=== PATIENT | male | born 1970 | race Caucasian/White ===

== ENCOUNTER 2018-01-09 18:49 | Observation (INO) ==
--- NOTE | 2018-01-09 20:02 | Emergency Department Note ---
Disposition Clinical Impression: Food impaction of esophagus Disposition: Home, Self-Care Condition: Good Referrals: Jean Chu MD [Partnered Physician] - Forms: ED Satisfaction Letter General Adult HPI - General Chief complaint: ED Skin/Abscess/Foreign Body Stated complaint: SOmething stuck in throat Time Seen by Provider: 01/09/18 19:09 Source: patient - History of Present Illness Pain Scale: 0 - Related Data Previous Rx's Medication Instructions Recorded Azithromycin [Azithromycin 6-Tab 250 mg PO PER PKG DI #6 tab 10/02/16 Pack] Amoxicillin 875 mg PO BID #20 tablet 03/15/17 Ibuprofen [Motrin] 600 mg PO Q8HR PRN #20 tab 03/15/17 Loratadine/Pseudophed (12 HR) 1 each PO BID #14 tab.er.12h 03/15/17 [Claritin D (12HR)] Oxymetazoline [Afrin] 1 spray NS Q12HR PRN 3 Days bottle 03/15/17 Doxycycline 100 mg PO BID #20 capsule 10/01/17 Loratadine [Claritin] 10 mg PO DAILY PRN #30 tablet 11/30/17 predniSONE [PredniSONE] 1 each PO DAILY 12 Days tablet 11/30/17 Allergies Allergy/AdvReac Type Severity Reaction Status Date / Time acetaminophen [From Vicodin] Allergy Hives Verified 01/09/18 18:55 hydrocodone [From Vicodin] Allergy Hives Verified 01/09/18 18:55 Past Medical History - Past Medical History Medical history: Reports: no medical history Surgical history: Reports: non-contributory Psychiatric history: Reports: no psych history - Social History Smoking Status: Never smoker Smokeless Tobacco Status: No Alcohol use: Reports: none Drug use: Reports: none Physical Exam - General General appearance: alert, in no apparent distress Course Vital Signs Temperature 97.9 F 01/09/18 18:53 Pulse Rate 74 01/09/18 18:53 Respiratory Rate 18 01/09/18 18:53 Blood Pressure 135/94 01/09/18 18:53 O2 Sat by Pulse Oximetry 98 01/09/18 18:53 Temperature 97.9 F 01/09/18 19:06 Pulse Rate 87 01/09/18 20:30 Respiratory Rate 16 01/09/18 20:30 Blood Pressure 117/96 01/09/18 20:30 O2 Sat by Pulse Oximetry 99 01/09/18 20:30 Oxygen Delivery Oxygen Delivery Room Air Attestation Statement - Attestation Attestation: I examined this patient and my medical decision-making was reviewed with the Resident Physician. I agree with the documented findings, disposition and treatment plan as described except to the extent set forth below. Patient presents to the ED with a chief complaint of swallowed foreign body. Patient was eating pork this afternoon. He felt something get stuck. He states he has a history of similar episodes. His PCP one of her nitroglycerin in the past for this. He states he has " tissue" in his esophagus. On examination he is in no distress. Lungs clear. He is spitting his secretions into a bottle. Plan. Patient had an IV placed. His been given glucagon. We will consult with endoscopy. Patient to endoscopy at 20
--- NOTE | 2018-01-09 20:02 | Emergency Department Note ---
Disposition Clinical Impression: Food impaction of esophagus Qualifiers: Encounter type: initial encounter Qualified Code(s): T18.128A - Food in esophagus causing other injury, initial encounter Disposition: Home, Self-Care Condition: Good Referrals: Jean Chu MD [Partnered Physician] - Forms: ED Satisfaction Letter Time of Disposition: 21:15 General Adult HPI - General Chief complaint: ED Skin/Abscess/Foreign Body Stated complaint: SOmething stuck in throat Time Seen by Provider: 01/09/18 19:09 Source: patient Nursing Notes Reviewed: Yes Vital Signs Reviewed: Yes - History of Present Illness HPI Narrative: 39-year-old male presents from home for evaluation of the sensation of an esophageal foreign body. At 2 PM the patient was eating pork and felt sensation that was stuck in his esophagus. He attempted to drink a cold water to push down however, this came back up. He is unable to tolerate his secretions at this point; he is spitting into a bottle at bedside. Patient is a history of similar sensation when eating however, he is able to force it down by gulping water. His last EGD was 10 years ago and he is not sure whether finding that he does not believe there was any dilation of his esophagus performed. No current daily medications. ROS: Positive: As above Negative: Chest pain, palpitations, vomiting, abdominal pain, unusual back pain. Pain Scale: 0 - Related Data Previous Rx's Medication Instructions Recorded Azithromycin [Azithromycin 6-Tab 250 mg PO PER PKG DI #6 tab 10/02/16 Pack] Amoxicillin 875 mg PO BID #20 tablet 03/15/17 Ibuprofen [Motrin] 600 mg PO Q8HR PRN #20 tab 03/15/17 Loratadine/Pseudophed (12 HR) 1 each PO BID #14 tab.er.12h 03/15/17 [Claritin D (12HR)] Oxymetazoline [Afrin] 1 spray NS Q12HR PRN 3 Days bottle 03/15/17 Doxycycline 100 mg PO BID #20 capsule 10/01/17 Loratadine [Claritin] 10 mg PO DAILY PRN #30 tablet 11/30/17 predniSONE [PredniSONE] 1 each PO DAILY 12 Days tablet 11/30/17 Allergies Allergy/AdvReac Type Severity Reaction Status Date / Time acetaminophen [From Vicodin] Allergy Hives Verified 01/09/18 18:55 hydrocodone [From Vicodin] Allergy Hives Verified 01/09/18 18:55 All systems ED: reviewed and negative except as stated. Review of Systems: As Per HPI Past Medical History - Past Medical History Medical history: Reports: no medical history Surgical history: Reports: non-contributory Psychiatric history: Reports: no psych history - Social History Smoking Status: Never smoker Smokeless Tobacco Status: No Alcohol use: Reports: none Drug use: Reports: none Physical Exam Vital Signs Reviewed General: Patient is alert, oriented, and in no acute distress. He is spitting into a bottle at bedside. Head: atraumatic, normocephalic Eye: normal appearance, PERRL, EOMI, no scleral icterus, no conjunctival injection ENT: mucous membranes moist, normal external ear exam Neck: normal inspection, trachea midline, full ROM Chest: normal inspection, symmetric chest rise Respiratory: Good respiratory effort. Bilateral breath sounds are clear without wheezing, crackles, or rhonchi. Cardiovascular: Regular rate and rhythm. No clicks, rubs, gallops, or murmors. Normal heart sounds. Abdomen: Bowel sounds present normoactive x-4 quadrants. Abdomen is soft, nondistended, and nontender. No guarding or rebound. No organomegaly noted. Musculoskeletal: Spontaneously moving all extremities. Skin: warm, dry, intact. Neuro: Alert and oriented x4. Sensation light touch intact. Psych: Patient's affect is appropriate for situation. - General General appearance: alert, in no apparent distress Course Course Narrative: IV placed. 2 g glucagon did not improve the patient's symptoms. Endoscopy consult, Dr. Montelongo, will be coming into the emergency department for evaluation. Patient taken by endoscopy and anesthesia for upper endoscopy tonight. He will be discharged from the ER to the OR then discharged from the PACU to home. Vital Signs Temperature 97.9 F 01/09/18 18:53 Pulse Rate 74 01/09/18 18:53 Respiratory Rate 18 01/09/18 18:53 Blood Pressure 135/94 01/09/18 18:53 O2 Sat by Pulse Oximetry 98 01/09/18 18:53 Temperature 99.0 F 01/09/18 22:59 Pulse Rate 92 01/09/18 23:09 Respiratory Rate 20 01/09/18 23:09 Blood Pressure 115/70 01/09/18 23:09 O2 Sat by Pulse Oximetry 93 01/09/18 23:09 Oxygen Delivery Oxygen Delivery Room Air
--- NOTE | 2018-01-09 21:08 | Anesthesia Evaluation PreOp ---
Date of Encounter: 01/09/18 Time of Encounter: 21:06 - Past History Planned Operation: Removal Foreign Body Esophagus Cardiac History: Denies any Significant Hx Pulmonary History: Denies Any Significant HX DEVELOPMENT PLANNER History: Denies Any Significant HX Other Medical History: Denies Any Significant HX Anesthesia History: No Prior Anesthetic Complications, Past Anesthesia (R. Elbow sx) Alcohol Use: none Drug use: none Medications and Allergies Azithromycin [Azithromycin 6-Tab Pack] 250 mg PO PER PKG DI #6 tab 10/02/16 [Rx] Amoxicillin 875 mg PO BID #20 tablet 03/15/17 [Rx] Ibuprofen [Motrin] 600 mg PO Q8HR PRN #20 tab 03/15/17 [Rx] Loratadine/Pseudophed (12 HR) [Claritin D (12HR)] 1 each PO BID #14 tab.er.12h 03/15/17 [Rx] Oxymetazoline [Afrin] 1 spray NS Q12HR PRN 3 Days bottle 03/15/17 [Rx] Doxycycline 100 mg PO BID #20 capsule 10/01/17 [Rx] Loratadine [Claritin] 10 mg PO DAILY PRN #30 tablet 11/30/17 [Rx] predniSONE [PredniSONE] 1 each PO DAILY 12 Days tablet 11/30/17 [Rx] 3 Allergy/AdvReac Type Severity Reaction Status Date / Time acetaminophen [From Vicodin] Allergy Hives Verified 01/09/18 18:55 hydrocodone [From Vicodin] Allergy Hives Verified 01/09/18 18:55 - Meds/Allergy Pre-op Review Medications Reviewed: Yes Allergies Reviewed: Yes Beta Blockers on Current Med List: No Anesthesia Exam O2 Sat Height 1.88 m Height 1.88 m Weight 108.862 kg Weight 108.862 kg O2 Sat by Pulse Oximetry 99 O2 Sat by Pulse Oximetry 98 O2 Sat by Pulse Oximetry 98 Vital Signs Temp Pulse Resp BP Pulse Ox 97.9 F 74 18 135/94 98 01/09/18 18:53 01/09/18 18:53 01/09/18 18:53 01/09/18 18:53 01/09/18 18:53 NPO (# of Hours): > 8 hrs Pain Scale: 0 Pain Scale Used: Numeric (1 - 10) - HEENT Pupil (Motor): Pupils equal, EOMI Mallampati: II Teeth: Normal Oral Opening: Greater than 3 - DEVELOPMENT PLANNER LOC: Oriented DEVELOPMENT PLANNER Motor: Normal RUE, Normal LUE, Normal RLE, Normal LLE, Normal Face DEVELOPMENT PLANNER Sensory: Normal: RUE, LUE, RLE, LLE, Face - Cardiac Rhythm: Regular Murmur: None JVD: No Carotid Bruit: No - Pulmonary Respiratory Effort: Symmetrical Anesthesia Assess/Plan ASA Score: 1 Modified Tu Scale for Level of Consciousness: Cooperative, oriented, and tranquil Anesthetic Plan: General Autologous Blood: Yes Monitoring Plan: Standard Monitors Recovery Plan: PACU
--- NOTE | 2018-01-09 21:10 | Internal Medicine Consult Note ---
Date of Encounter: 01/09/18 Time of Encounter: 21:08 - Assessment and Plan (1) Impacted esophageal foreign body Current Visit: Yes Status: Acute Assessment and plan: He has what appears to be esophageal meat impaction, will provide upper endoscopy this evening with risks and benefits have been discussed with he and others in the room. Nursing was present. Qualifiers: Qualified Code(s): T18.108A - Unspecified foreign body in esophagus causing other injury, initial encounter Internal Medicine - CN: HPI - Data of Consult Patient: new to practice Consult date: 01/09/18 - Consult Narrative Reason for consult: Esophageal meat impaction, seen in the ED. History of present illness: Mr. Montana is a 47 year old male who is seen in the emergency department, for apparent meat impaction. This gentleman admits around 2:00, have not pulled po rk, and then since that time has been unable to swallow or get any liquids down. Otherwise he has had some hypersalivation and emesis of some sputum. He has had no neck pain abdominal pain and otherwise appears quite relaxed. He admits over the years he has had trouble swallowing from time to time he has never had anything caught. Denies weight loss or reflux symptoms. Past Med Surg Social Fam HX - Past Medical History Medical history: no medical history Psychiatric history: no psych history - Past Surgical History Surgical History: non-contributory Additional surgical history: right elbow - Social History Smoking Status: Never smoker Smokeless Tobacco Status: No Alcohol use: none Drug use: none - Constitutional Constitutional: no anorexia, no chills, no fever(s), no weight loss - EENT Nose, mouth and throat: no neck mass, no odynophagia, no sinus pressure, no sore throat, no throat swelling, no tongue swelling - Cardiovascular Cardiovascular ROS IM: no chest pain, no diaphoresis, no dyspnea - Respiratory Respiratory: no cough, no dyspnea, no wheezing, no stridor - Gastrointestinal Gastrointestinal: dysphagia, nausea, vomiting, no abdominal pain, no dyspepsia, no heartburn Internal Medicine - CN: Meds Azithromycin [Azithromycin 6-Tab Pack] 250 mg PO PER PKG DI #6 tab 10/02/16 [Rx] Amoxicillin 875 mg PO BID #20 tablet 03/15/17 [Rx] Ibuprofen [Motrin] 600 mg PO Q8HR PRN #20 tab 03/15/17 [Rx] Loratadine/Pseudophed (12 HR) [Claritin D (12HR)] 1 each PO BID #14 tab.er.12h 03/15/17 [Rx] Oxymetazoline [Afrin] 1 spray NS Q12HR PRN 3 Days bottle 03/15/17 [Rx] Doxycycline 100 mg PO BID #20 capsule 10/01/17 [Rx] Loratadine [Claritin] 10 mg PO DAILY PRN #30 tablet 11/30/17 [Rx] predniSONE [PredniSONE] 1 each PO DAILY 12 Days tablet 11/30/17 [Rx] Allergy/AdvReac Type Severity Reaction Status Date / Time acetaminophen [From Vicodin] Allergy Hives Verified 01/09/18 18:55 hydrocodone [From Vicodin] Allergy Hives Verified 01/09/18 18:55 Internal Med - CN: Exam - Constitutional Vitals: Temp Pulse Resp BP Pulse Ox 97.9 F 87 16 117/96 99 01/09/18 19:06 01/09/18 20:30 01/09/18 20:30 01/09/18 20:30 01/09/18 20:30 General appearance IM: Present: A&O X 3, pleasant, no acute distress - Head Head exam: Present: atraumatic, normal inspection - ENT ENT exam: Present: mucous membranes moist, normal oropharynx - Neck Neck exam general surgery: Present: full ROM, supple, trachea midline. Absent: nuchal rigidity - Respiratory Respiratory exam: Present: CTAB - Cardiovascular Cardiovascular exam IM: Present: RRR, +S1, +S2. Absent: irregular rhythm, JVD, tachycardia - GI/Abdominal GI/Abdominal exam IM: Present: normal bowel sounds, soft, no peritoneal signs. Absent: rebound, tenderness Consult Discharge Plan - Plan Referrals: NONE,PCP [Primary Care Provider] -
[2018-01-09] MEDS ORDERED: Tetracaine/Benzocaine/Butamben 1 SPRAY AEROSOL MM ONE (21:13)
[2018-01-09] MEDS ORDERED: Simethicone 40 MG/0.6 ML MLS IR ONE (21:13)
[2018-01-09] MEDS ORDERED: 0.9 % Sodium Chloride 1,000 ML IVC SCH ×2 (21:15→23:29)
[2018-01-09] MEDS ORDERED: *HR* Midazolam HCl 2 MG/2 ML VIAL ONE (21:42)
[2018-01-09] MEDS ORDERED: *HR* FentaNYL (PF) 100 MCG/2 ML VIAL ONE (21:42)
[2018-01-09] MEDS ORDERED: *HR* Propofol 200 MG/20 ML VIAL IVP ONE (21:43)
[2018-01-09] MEDS ORDERED: *HR* Succinylcholine 200 MG/10 ML VIAL IVP ONE (21:45)
[2018-01-09] MEDS ORDERED: Ondansetron 4 MG/2 ML VIAL ONE (21:45)
[2018-01-09] MEDS ORDERED: Lidocaine -MPF 2% 2 ML VIAL ONE (21:45)
[2018-01-09] MEDS ORDERED: Dexamethasone 4 MG/ML VIAL ONE (21:45)
[2018-01-09] MEDS ORDERED: *HR* Promethazine 25 MG/ML VIAL IVP PRN (22:32)
[2018-01-09] MEDS ORDERED: Ketorolac 30 MG/ML VIAL IVP ONE (22:32)
[2018-01-09] MEDS ORDERED: Ondansetron 4 MG/2 ML VIAL IVP ONE (22:32)
--- NOTE | 2018-01-09 23:25 | Anesthesia Evaluation Post Op ---
Date of Encounter: 01/09/18 Time of Encounter: 23:24 - Vital Signs Vital Signs: Vital Signs/O2 Sat, Most Current Temp Pulse Resp BP Pulse Ox 99.0 F 92 16 116/87 93 01/09/18 22:59 01/09/18 23:19 01/09/18 23:19 01/09/18 23:19 01/09/18 23:19 - Lungs Lungs: Clear Ascult./Percussion - Airway Airway: Non-obstructed - Cardiovascular Regular Rate - Mental Status Mental Status: Alert & Oriented, Answers Appropriately - Pain Pain Scale: 0 Pain Scale used: Numeric (1 - 10) - Nausea Vomiting Nausea Vomiting: Not Present - Hydration Hydration: NPO, Has not voided - Discharge PostOp Status: Transfer Patient to floor
[2018-01-10 00:18] VITALS: BP 113/75
--- NOTE | 2018-01-21 10:10 | Discharge Summary ---
Date of Encounter: 01/09/18 Time of Encounter: 21:00 - Discharge Diagnosis (1) Impacted esophageal foreign body Priority: Primary Status: Acute Qualifiers: Qualified Code(s): T18.108A - Unspecified foreign body in esophagus causing other injury, initial encounter Hospital course: Mr. Montana is a 47 year old male Discharge discussed with: family Time spent discussing smoking cessation with patient: 3 to 10 minutes - Time Spent with Patient Total time spent providing and/or coordinating discharge services: Less than 30 minutes - Discharge Medications Home Medications: Azithromycin [Azithromycin 6-Tab Pack] 250 mg PO PER PKG DI #6 tab 10/02/16 [Rx] Ibuprofen [Motrin] 600 mg PO Q8HR PRN #20 tab 03/15/17 [Rx] Loratadine/Pseudophed (12 HR) [Claritin D (12HR)] 1 each PO BID #14 tab.er.12h 03/15/17 [Rx] Oxymetazoline [Afrin] 1 spray NS Q12HR PRN 3 Days bottle 03/15/17 [Rx] RX: Amoxicillin 875 mg PO BID #20 tablet 03/15/17 [Rx] RX: Doxycycline 100 mg PO BID #20 capsule 10/01/17 [Rx] Loratadine [Claritin] 10 mg PO DAILY PRN #30 tablet 11/30/17 [Rx] predniSONE [PredniSONE] 1 each PO DAILY 12 Days tablet 11/30/17 [Rx] Allergies/Adverse Reactions: Allergy/AdvReac Type Severity Reaction Status Date / Time acetaminophen [From Vicodin] Allergy Hives Verified 01/09/18 18:55 hydrocodone [From Vicodin] Allergy Hives Verified 01/09/18 18:55 Date of admission: 01/09/18 23:25 Primary care physician: PCP NONE Discharging clinician: Chris Montelongo Anticipated date of discharge: 01/10/18 - Constitutional Vitals: Temp Pulse Resp BP Pulse Ox 97.8 F 82 14 113/75 96 01/10/18 00:17 01/10/18 00:17 01/10/18 00:17 01/10/18 00:17 01/10/18 00:17 - Patient Status Disposition: Home, Self-Care Condition: Good Overall status at discharge: patient is back to baseline - Discharge Instructions Follow Up With: NONE,PCP [Primary Care Provider] - - Diet and Activity Diet: advance to your usual diet - VTE Reasons for not Prescribing Prophylaxis: Treatment not Indicated - Low risk for VTE
== END 2018-01-10 01:56 | disposition home or self-care (01) ==
LOC: 3NENU 18:49 → EMEROOARM 18:49 → 3NENU 22:00
PROVIDERS: ADMIT Internal Medicine; ATTEND Internal Medicine
PROC: ENDOEFB (2018-01-09 22:00)